=== PATIENT | male | born 1945 | race Caucasian/White ===

== ENCOUNTER → 2017-03-20 | Outpatient (CLI) | payer MEDICARE, BC | END | disposition home or self-care (01) | LOC: PCVCCLINIC 08:00 | PROVIDERS: ATTEND Internal Medicine | DX: I44.0 Atrioventricular block, first degree (principal); E78.5 Hyperlipidemia, unspecified; N18.2 Chronic kidney disease, stage 2 (mild); Z86.79 Personal history of other diseases of the circulatory system; Z88.0 Allergy status to penicillin | CPT/HCPCS: G0463 ==

== ENCOUNTER → 2017-03-29 | Outpatient (CLI) | payer MEDICARE, BC ==
--- NOTE | 2017-03-30 09:10 | PCVCIMAG ---
APPROVED REPORT Study performed: 03/29/2017 15:31:22 EXAM: Comprehensive 2D, Doppler, and color-flow Echocardiogram Patient Location: Echo lab Status: routine Other Information Study Quality: Good Indications Murmur Dyspnea HX Rheumatic fever as a child 2D Dimensions IVSd: 9.44 (7-11mm)LVOT Diam: 21.34 (18-24mm) LVDd: 42.55 mm PWd: 8.79 (7-11mm)Ascending Ao: 35.94 (22-36mm) LVDs: 27.14 (25-40mm) Left Atrium: 42.21 (27-40mm) Aortic Root: 28.39 mm LV Single Plane 4CH: 60.31 % LV Single Plane 2CH: 60.41 %Howell's LVEF: 60.36 % Biplane EF: 60.5 % Volumes Left Atrial Volume (Systole) Single Plane 4CH: 52.98 mLSingle Plane 2CH: 58.98 mL LA ESV Index: 29.00 mL/m2 Aortic Valve AoV Peak Adolph.: 2.43 m/s AO Peak Gr.: 26.81 mmHgLVOT Max P.41 mmHg AO Mean Gr.: 12.64 mmHgLVOT Mean P.01 mmHg AO V2 Mean: 1.66 m/sLVOT Max V: 1.11 m/s AO V2 VTI: 56.61 cmLVOT Mean V: 0.84 m/s HOLA (VTI): 1.58 [id number] V1 VTI: 25.08 cm HOLA Vmax: 1.63 cm2 SV (LVOT): 89.62 mL Mitral Valve E/A Ratio: 0.8 MV Decel. Time: 279.66 ms MV E Max Adolph.: 0.81 m/s MV A Adolph.: 1.00 m/s IVRT: 86.51 ms TDI E/Lateral E': 8.10E/Medial E': 13.50 Medial E' Adolph.: 0.06 m/s Lateral E' Adolph.: 0.10 m/s Pulmonary Valve PV Peak Adolph.: 1.16 m/sPV Peak Gr.: 5.42 mmHg Pulmonary Vein P Vein S: 0.43 m/sP Vein A: 0.36 m/s P Vein D: 0.49 m/sP Vein A Dur.: 79.6 msec P Vein S/D Ratio: 0.88 Tricuspid Valve TR Peak Adolph.: 2.28 m/s TR Peak Gr.: 20.80 mmHg TV Vmax: 0.57 m/sPA Pressure: 28.00 mmHg Left Ventricle The left ventricle is normal size. There is normal LV segmental wall motion. There is normal left ventricular wall thickness. Left ventricular systolic function is normal. The left ventricular ejection fraction is within the normal range. LVEF is 55-60%. Grade I - abnormal relaxation pattern. Right Ventricle The right ventricle is normal size. The right ventricular systolic function is normal. Atria Left atrium is mildly dilated. The right atrium size is normal. Aortic Valve Trileaflet structure with moderate leaflet calcification No aortic regurgitation is present. Mild aortic stenosis Calculated aortic valve area is 1.9 cm2 with maximum pressure gradient of 24 mmHg and mean pressure gradient of 13 mmHg. Mitral Valve Mild mitral annular calcification There is mild mitral valve regurgitation noted. No evidence of mitral valve stenosis. Tricuspid Valve The tricuspid valve is normal in structure. There is mild tricuspid valve regurgitation noted with a PA pressure of 28mmHg. Pulmonic Valve The pulmonary valve is normal in structure. There is no pulmonic valvular regurgitation. Great Vessels The aortic root is normal in size. The ascending aorta is normal in size. IVC is normal in size and collapses with >50% inspiration Pericardium There is no pericardial effusion. There is no pleural effusion. <Conclusion> Left ventricular systolic function is normal. There is normal LV segmental wall motion. LVEF is 55-60%. Grade I diastolic dysfunction Trileaflet structure with moderate leaflet calcification Mild aortic stenosis. Calculated aortic valve area is 1.9 cm2 with maximum pressure gradient of 24 mmHg and mean pressure gradient of 13 mmHg. Mild mitral annular calcification. Mild mitral valve regurgitation noted. There is no pericardial effusion.
== END | disposition home or self-care (01) ==
LOC: PCVCIMAG 15:25
PROVIDERS: ATTEND Internal Medicine
DX: I08.1 Rheumatic disorders of both mitral and tricuspid valves (principal); I10 Essential (primary) hypertension; N28.9 Disorder of kidney and ureter, unspecified
CPT/HCPCS: 93017; 93306